=== PATIENT | female | born 1965 | race Caucasian/White ===

== ENCOUNTER 2021-11-22 13:27 | Emergency (ER) | payer MEDICAID ==
[2021-11-22] MEDS ORDERED: Sodium Chloride 0.9% 10 ML Syringe FLUSH PRN (13:59)
[2021-11-22] MEDS: methylPREDNISolone Sodium Succinate 125 MG/2 ML SDV IVPUSH ONE (14:20)
[2021-11-22] MEDS: Famotidine 20 MG/2 ML SDV IVPUSH ONE (14:25)
[2021-11-22] MEDS: diphenhydrAMINE 50 MG/ML SDV ONE (14:29)
[2021-11-22] MEDS: methylPREDNISolone Sodium Succinate 125 MG/2 ML SDV ONE (14:29)
[2021-11-22] MEDS: diphenhydrAMINE 50 MG/ML SDV IVPUSH ONE (14:31)
== END 2021-11-22 16:00 | disposition home or self-care (01) ==
LOC: LB.ED 13:27
DX: T78.40XA Allergy, unspecified, initial encounter (principal); Z79.899 Other long term (current) drug therapy
CPT/HCPCS: 96374; 96375; 99282; J1200; J2930; J3490